=== PATIENT | female | born 1975 | race Two or more races ===

== ENCOUNTER 2023-08-02 21:58 | Inpatient (IN) | payer BC, OTHER ==
[~2023-08-02] VITALS: Ht 152.4 cm; Wt 55.0 kg
[2023-08-02 23:00] VITALS: PULSE 80; RESP 17; O2SAT 94
[2023-08-02 23:27] LABS: Basophils # (auto) 0 10 ^3/uL (0-0.2); Basophils % (auto) 0.6 % (0.0-2.0); Eosinophils # (auto) 0.3 10 ^3/uL (0-0.8); Eosinophils % (auto) 3.5 % (0.0-7.0); Hematocrit 48.7 % (36.0-46.0); Hemoglobin 15.8 g/dL (12.2-16.2); Lymphocytes # (auto) 1.9 10 ^3/uL (0.4-5.4); Lymphocytes % (auto) 26.5 % (10.0-50.0); Mean Corpuscular Hemoglobin 32.9 pg (28.0-32.0); Mean Corpuscular Hgb Conc. 32.6 g/dL (32.0-36.0); Mean Corpuscular Volume 101.1 fL (80.0-100.0); Monocytes # (auto) 0.6 10 ^3/uL (0-1.3); Monocytes % (auto) 7.8 % (0.0-12.0); Neutrophils # (auto) 4.4 10 ^3/uL (1.6-8.6); Neutrophils % (auto) 61.6 % (37.0-80.0); Red Blood Cells 4.81 10^6/uL (4.0-5.20); Red Cell Distribution Width 13.3 % (11.8-14.3); White Blood Cell 7.1 10^3/uL (4.4-10.8)
[2023-08-02 23:28] LABS: Amphetamine Screen, Urine Neg (NEGATIVE)
[2023-08-02 23:29] LABS: Barbiturate Scree,Urine Neg (NEGATIVE); Benzodiazephine Screen, Urine Pos (NEGATIVE); Cannabinoid Screen, Urine Neg (NEGATIVE); Cocaine Screen, Urine Neg (NEGATIVE); Opiate Scree,Urine Neg (NEGATIVE); Phencyclidine Screen, Urine Neg (NEGATIVE)
[2023-08-02 23:38] LABS: Chloride 111 mmol/L (98-107); Potassium 3.3 mmol/L (3.5-5.1); Sodium 145 mmol/L (136-145)
[2023-08-02 23:39] LABS: Anion Gap 13 (5-15); Carbon Dioxide 21 mmol/L (20-30)
[2023-08-02 23:40] LABS: Calcium 9.1 mg/dL (8.5-10.1)
[2023-08-02 23:44] LABS: Glucose 103 mg/dL (74-106)
[2023-08-02 23:46] LABS: BUN/Creatinine Ratio 12.8 (10.0-20.0); Blood Urea Nitrogen < 5 mg/dL (9-23)
[2023-08-02] MEDS: levETIRAcetam 1000 mg/100ml 100 ML IV ONE (23:50)
[2023-08-03 00:04] LABS: Blood Alcohol 410.9 mg/dL (<10)
[2023-08-03] MEDS ORDERED: ACETAMINOPHEN 325 MG TAB PO PRN (00:15)
[2023-08-03] MEDS ORDERED: ONDANSETRON HCL 4 MG/2 ML VIAL IV PRN (00:15)
[2023-08-03] MEDS ORDERED: HYDROcodone-ACET 5/325MG TAB PO PRN (00:15)
[2023-08-03] MEDS ORDERED: DOCUSATE SOD 100 MG CAP PO PRN (00:15)
[2023-08-03] MEDS ORDERED: POTASSIUM CHL 20 Meq TABLET PO ONE (00:30)
[2023-08-03] MEDS ORDERED: MORPHINE SULFATE INJ 2 MG/ml SYRG IV PRN (01:15)
[2023-08-03] MEDS ORDERED: NITROGLYCERIN 0.4 MG SL TAB SL PRN (01:15)
[2023-08-03] MEDS ORDERED: POTASSIUM CHL 20MEQ/100ML 100 ML IV ONE (01:30)
[2023-08-03] MEDS ORDERED: LORazepam 2MG/ML-1ML VIAL IV PRN ×2 (02:00→10:15)
[2023-08-03] MEDS: POTASSIUM CHL 20 Meq TABLET PO ONE ×2 (02:19→02:21)
[2023-08-03] MEDS: SODIUM CHLORIDE 0.9% 1,000 ML IV SCH (02:21)
[2023-08-03] MEDS: LORazepam 2MG/ML-1ML VIAL IV PRN (03:02)
[2023-08-03 03:52] VITALS: BP 88/57; PULSE 71; RESP 18; TEMP 97.3; O2SAT 99
[2023-08-03 05:00] VITALS: BP 88/57; PULSE 71; RESP 18; TEMP 97.3; O2SAT 99
[2023-08-03 08:10] VITALS: BP 94/61; PULSE 81; PULSE 87; RESP 16; TEMP 98
[2023-08-03 08:44] VITALS: BP 94/61; PULSE 87; RESP 16; TEMP 98; O2SAT 96
[2023-08-03] MEDS ORDERED: chlordiazePOXIDE HCL 25 MG CAP PO PRN (10:15)
[2023-08-03] MEDS: levETIRAcetam 1000 mg/100ml 100 ML IV SCH (10:29)
[2023-08-03] MEDS ORDERED: DUPI300I SC (10:55)
[2023-08-03] MEDS ORDERED: chlordiazePOXIDE HCL 25 MG CAP PO SCH (12:15)
[2023-08-03] MEDS ORDERED: THIAMINE 100mg/ml INJ (200mg/2ml VIAL) IV ONE (12:15)
[2023-08-03 13:00] VITALS: BP 108/71; PULSE 82; RESP 17; TEMP 98.4; O2SAT 97
[2023-08-03] MEDS ORDERED: FOLIC ACID 1 MG, MAGNESIUM SULF SDV 50% 8 MEQ, MULTIPLE VITAMIN 10 ML, THIAMINE INJ 100... INJ SCH (18:00)
[2023-08-03] MEDS ORDERED: levETIRAcetam 500 mg/100ml 100 ML IV SCH (22:00)
== END 2023-08-03 13:55 | disposition left against medical advice (07) | DRG 101 ==
LOC: ER 21:58 → EDBD 21:58 → TELE 08-03 01:08 → ER 08-03 01:08 → TELE-CENTR 08-03 03:43
PROVIDERS: ADMIT Nurse Practitioner Family; ATTEND Hospitalist
DX: G40.909 Epilepsy, unspecified, not intractable, without status epilepticus (principal); F10.129 Alcohol abuse with intoxication, unspecified; F17.200 Nicotine dependence, unspecified, uncomplicated; Z53.29 Procedure and treatment not carried out because of patient's decision for other reasons; Y90.9 Presence of alcohol in blood, level not specified; Z88.5 Allergy status to narcotic agent; Z79.899 Other long term (current) drug therapy
CPT/HCPCS: 36415; 70450; 80048; 80307; 80320; 84702; 85025; 99291; G0378